=== PATIENT | female | born 1970 | race Two or more races ===

== ENCOUNTER 2023-07-13 19:18 | Emergency (ER) | payer MEDICAID, OTHER ==
[~2023-07-13] VITALS: Ht 157.5 cm; Wt 69.0 kg
[2023-07-13 19:27] VITALS: O2SAT 97
[2023-07-13] MEDS ORDERED: METHYLPREDNISOLONE SOD SUCC 125MG/2ML (ACT-O-VIAL) IV ONE (19:30)
[2023-07-13] MEDS ORDERED: EPINEPHRINE 1:1000 1 MG/ML AMP IM ONE (19:30)
[2023-07-13] MEDS ORDERED: FAMOTIDINE 20MG TABLET PO ONE (19:30)
[2023-07-13] MEDS ORDERED: DIPHENHYDRAMINE 50MG/ML VIAL IV ONE (19:30)
[2023-07-13] MEDS ORDERED: SODIUM CHLORIDE 0.9% 1,000 ML IV ONE (19:30)
[2023-07-13] MEDS ORDERED: FAMO-135 MT (20:16)
[2023-07-13] MEDS ORDERED: DIPH25TA26 MT (20:16)
[2023-07-13] MEDS ORDERED: EPIN0.3P3 IM (20:16)
[2023-07-13] MEDS ORDERED: P20 MT (20:16)
[2023-07-13 22:30] VITALS: BP_SYST 139; PULSE 75; RESP 19; TEMP 98.9
[2023-07-14 00:13] VITALS: BP_DIAS 89
== END 2023-07-13 22:48 | disposition home or self-care (01) ==
LOC: ER 19:44
DX: T78.3XXA Angioneurotic edema, initial encounter (principal); E11.9 Type 2 diabetes mellitus without complications; I10 Essential (primary) hypertension; X58.XXXA Exposure to other specified factors, initial encounter
CPT/HCPCS: 96361; 96372; 96374; 96375; 99291; J1200; J3490; J2930; J7030; Z7610 ×3

== ENCOUNTER 2023-07-24 17:07 | Emergency (ER) | payer MEDICAID, OTHER ==
[~2023-07-24] VITALS: Ht 160 cm; Wt 84.0 kg
[~2023-07-24 17:07] MED LIST: DIPH25TA26 MT; EPIN0.3P3 IM; FAMO-135 MT; P20 MT
[2023-07-24 17:20] VITALS: O2SAT 98
[2023-07-24 18:43] LABS: BASOPHILS % 0.9 % (0.0-2.0); HEMATOCRIT. 42.7 % (36.0-48.0); HEMOGLOBIN. 14.1 g/dL (12.0-16.0); LYMPHOCYTES % 22.2 % (20.0-50.0); MEAN CORPUSCULAR HEMOGLOBIN 27.5 pg (28.0-32.0); MEAN CORPUSCULAR HGB CONC 33.1 g/dL (31.0-37.0); MEAN CORPUSCULAR VOLUME 83.1 fL (81.0-99.0); MEAN PLATELET VOLUME 8.2 fl (7.4-10.4); MONOCYTES % 6.4 % (2.0-8.0); NEUTROPHILS % 68.5 % (40.0-76.0); PLATELET 288 x1000/uL (130-400); RED BLOOD CELL COUNT 5.14 mill/uL (4.2-5.4); RED CELL DISTRIBUTION WIDTH 14.6 % (11.6-14.6); WHITE BLOOD COUNT 12.8 x1000/uL (4.5-11.0)
[2023-07-24 18:57] LABS: ALANINE AMINOTRANSFERASE 17 IU/L (10-49); ALBUMIN 4.6 g/dL (3.2-4.8); ASPARTATE AMINOTRANSFERASE 16 IU/L (<34); BILIRUBIN TOTAL 0.4 mg/dL (0.1-1.0); CALCIUM 9.7 mg/dL (8.7-10.4); CARBON DIOXIDE 26 mEq/L (21-32); CHLORIDE 107 mEq/L (98-107); CREATININE 0.8 mg/dL (0.6-1.0); GLUCOSE 118 mg/dL (70-105); POTASSIUM 3.7 mEq/L (3.5-5.1); PROTEIN TOTAL 8.1 g/dL (6.0-8.3); SODIUM 141 mEq/L (136-145); UREA NITROGEN BLOOD 17 mg/dL (9-23)
[2023-07-24 19:05] LABS: TROPONIN I HIGH SENSITIVITY < 4 ng/L (3.0-34)
[2023-07-24 21:52] LABS: CLARITY URINE CLEAR (CLEAR); COLOR URINE YELLOW (YELLOW); GLUCOSE URINE NEGATIVE (NEGATIVE); KETONES URINE NEGATIVE (NEGATIVE); LEUKOCYTE ESTERASE URINE 3+ (NEGATIVE); NITRITE URINE NEGATIVE (NEGATIVE); OCCULT BLOOD URINE 2+ (NEGATIVE); PH URINE 6.5 (4.5-8.0); PROTEIN URINE TRACE (NEGATIVE); SPECIFIC GRAVITY URINE 1.014 (1.005-1.030); UROBILINOGEN URINE 0.2 E.U./dL (0.2-1.0)
[2023-07-24 22:03] LABS: WBC URINE TNTC /hpf (0-2)
[2023-07-24 22:04] LABS: BACTERIA URINE TRACE; SQUAMOUS EPITHELIAL CELL URINE FEW /lpf (RARE/1+)
[2023-07-24] MEDS ORDERED: CEFP200T13 MT (22:24)
[2023-07-24] MEDS ORDERED: NAPR-681 MT (22:26)
[2023-07-24 22:40] VITALS: BP 167/101
[2023-07-24] MEDS: KETOROLAC 60MG/2ML VIAL IM ONE (22:40)
[2023-07-24 22:52] VITALS: PULSE 84; RESP 19; TEMP 97.9
== END 2023-07-24 22:53 | disposition home or self-care (01) ==
LOC: ER 17:07
DX: N12 Tubulo-interstitial nephritis, not specified as acute or chronic (principal); E11.9 Type 2 diabetes mellitus without complications; I10 Essential (primary) hypertension; Z88.8 Allergy status to other drugs, medicaments and biological substances
CPT/HCPCS: 99285; 71250; 71045; 80053; 81003; 85025; 87086; 84484; 36415; 93005; 96372; J1885